=== PATIENT | female | born 1995 | race Hispanic/Latino ===

== ENCOUNTER 2019-02-10 15:41 | Day surgery (SDC) | payer OTHER ==
[2019-02-10 16:12] VITALS: BMI 25.8
[2019-02-10] MEDS ORDERED: hydrALAZINE 20 MG/ML VIAL SLOW IVP PRN (16:58)
--- NOTE | 2019-02-10 17:21 | PRG ---
DATE OF SERVICE: 02/10/2019 PRIMARY OB: Stacy Monreal MD CHIEF COMPLAINT: Decreased movement. HISTORY OF PRESENT ILLNESS: The patient is a 23-year-old, G2, P1 female with an intrauterine at 37 weeks and 3 days, presenting to Labor and Delivery with decreased movement since 11 o'clock this morning. The patient reports that she has not felt her baby move as usual, but since having the monitor placed by the nurse prior to evaluation, the patient states that she has began feeling her baby move again. The patient denies any medical problems, any previous surgeries. She reports her previous was without complications. She denies any recent fever or fall or cough, headache, chest pain, shortness of breath, nausea, vomiting. She does report she has had some diarrhea for the last couple of days. Denies constipation. Denies any new rashes, hip problems, knee problems, muscle weakness, vaginal bleeding or leakage of fluid, urinary urgency or frequency. PAST MEDICAL HISTORY: Negative. PAST SURGICAL HISTORY: Negative. ALLERGIES: NO KNOWN DRUG ALLERGIES. MEDICATIONS: vitamins. SOCIAL HISTORY: Denies drug, alcohol, or tobacco use. OB LABS: Blood type is O positive. Antibody screen is negative. RPR is nonreactive in the first trimester. HIV is nonreactive in the first trimester. Hepatitis B surface antigen is negative. She is rubella immune. One-hour Glucola is 108 and she is GBS negative. REVIEW OF SYSTEMS: Per HPI. PHYSICAL EXAMINATION: VITAL SIGNS: Blood pressure is 106/56, heart rate of 83, respiratory rate of 18. GENERAL: She appears to be in no acute distress. She is alert, oriented, cooperative, and pleasant to interact with. HEAD: Normocephalic, atraumatic. LUNGS: Clear to auscultation bilaterally. HEART: Regular rate and rhythm. ABDOMEN: Gravid, soft, and nontender. EXTREMITIES: Nontender and nonedematous. : Deferred. IMAGING STUDIES: heart tracing shows a baseline in the 140s with moderate long-term variability, positive 15 x 15 accelerations, no decelerations, no contractions on the tocometer. ASSESSMENT AND PLAN: The patient is a 23-year-old, G2, P1 female with an intrauterine at 37 weeks and 3 days, who had some transient decreased movement. The fetus is moving now with stimulation from the heart monitors. Fetus has a category 1 tracing and reactive NST. The patient has been given reassurance and is being discharged to home. She has followup scheduled on Sunday with Dr. Monreal which we have encouraged that she keep. Job ID: [id number]
== END 2019-02-10 17:20 | disposition home health service (06) ==
LOC: L&D/OP 15:41
PROVIDERS: ATTEND Obstetrics & Gynecology
DX: O36.8130 Decreased fetal movements, third trimester, not applicable or unspecified (principal); O99.89 Other specified diseases and conditions complicating pregnancy, childbirth and the puerperium; M54.9 Dorsalgia, unspecified; Z3A.37 37 weeks gestation of pregnancy
CPT/HCPCS: 99282